=== PATIENT | female | born 1995 | race Caucasian/White ===

== ENCOUNTER → 2018-09-06 | Outpatient (CLI) | payer MEDICAID | LOC: FIMAGING 10:21 | PROVIDERS: ATTEND Midwife | DX: O34.219 Maternal care for unspecified type scar from previous cesarean delivery (principal); Z3A.21 21 weeks gestation of pregnancy ==

== ENCOUNTER → 2018-11-26 | Outpatient (CLI) | payer MEDICAID | LOC: FIMAGING 14:56 | PROVIDERS: ATTEND Midwife | DX: O99.213 Obesity complicating pregnancy, third trimester (principal); O34.219 Maternal care for unspecified type scar from previous cesarean delivery; Z87.59 Personal history of other complications of pregnancy, childbirth and the puerperium; Z3A.32 32 weeks gestation of pregnancy ==